=== PATIENT | male | born 2000 | race Caucasian/White ===

== ENCOUNTER 2024-08-20 20:57 | Emergency (ER) | payer BC ==
[2024-08-20 21:15] LABS: BASOPHILS ABSOLUTE AUTO 0.05 K/uL (0.02-0.10); BASOPHILS PERCENT AUTO 0.6 % (0.0-0.5); EOSINOPHILS ABSOLUTE AUTO 0.14 K/uL (0.04-0.40); EOSINOPHILS PERCENT AUTO 1.6 % (1.0-5.0); HEMATOCRIT 44.8 % (40.0-54.0); HEMOGLOBIN 15.7 g/dL (13.0-18.0); LYMPHOCYTES ABSOLUTE AUTO 1.86 K/uL (1.50-4.00); LYMPHOCYTES PERCENT AUTO 21.7 % (20.0-40.0); MEAN CORPUSCULAR HEMOGLOBIN 31.9 pg (27.0-32.0); MEAN CORPUSCULAR VOLUME 91 fL (76-96); MEAN PLATELET VOLUME 9.4 fL (6.0-10.0); MONOCYTES ABSOLUTE AUTO 1.13 K/uL (0.20-0.80); MONOCYTES PERCENT AUTO 13.2 % (3.0-10.0); NEUTROPHILS ABSOLUTE AUTO 5.39 K/uL (2.00-7.50); NEUTROPHILS PERCENT AUTO 62.9 % (45.0-70.0); PLATELET COUNT,PLT 267 K/uL (150-400); RED BLOOD CELL COUNT 4.92 M/uL (4.50-6.50); RED CELL DISTRIBUTION WIDTH 12.4 % (11.0-16.0); WHITE BLOOD CELL COUNT,WBC 8.6 K/uL (4.0-11.0)
[2024-08-20 21:26] LABS: PTT,PARTIAL THROMBOPLSTIN TIME 23.1 SECONDS (24.4-33.2)
[2024-08-20 21:27] LABS: PROTHROMBIN TIME 10.5 sec (9.0-11.5)
[2024-08-20 21:31] LABS: A/G RATIO 1.1 (0.8-2.0); ALANINE AMINOTRANSFERASE,ALT 44 U/L (12-78); ALBUMIN 4.2 g/dL (3.4-5.0); ALKALINE PHOSPHATASE 59 U/L (46-116); ANION GAP 21.3 mmol/L (5.0-15.0); ASPARTATE AMNIOTRANSFERASE,AST 31 U/L (15-37); BILIRUBIN TOTAL 0.4 mg/dL (0.0-1.0); BLOOD UREA NITROGEN,BUN 10 mg/dL (8-26); BUN/CREATININE RATIO 10.5 (6-25); CALCIUM 9.1 mg/dL (8.5-10.1); CARBON DIOXIDE,CO2 23.1 mmol/L (21.0-32.0); CHLORIDE,CL 103 mmol/L (98-107); CREATININE 0.95 mg/dL (0.70-1.30); ESTIMATED GFR 116 mL/min (>60); GLUCOSE RANDOM 112 mg/dL (74-100); LIPASE 36 U/L (16-77); POTASSIUM,K 3.4 mmol/L (3.5-5.1); PROTEIN TOTAL,TP 7.9 g/dL (6.4-8.2); SODIUM,NA 144 mmol/L (136-145); TROPONIN I HIGH SENSITIVITY 5.3 pg/ml (<=60.4)
[2024-08-20] MEDS: Sodium Chloride 0.9% 50 ML SDV FLUSH ONE (21:51)
[2024-08-20] MEDS: Iopamidol 612 MG/ML 100 ML Bottle IV SCH (21:51)
[2024-08-20] MEDS: Lactated Ringers 1,000 ML IV ONE (21:57)
[2024-08-20] MEDS: fentaNYL 100 MCG/2 ML SDV IVPUSH ONE (22:00)
[2024-08-20 22:58] LABS: APPEARANCE,URINE CLEAR (CLEAR); COLOR,URINE YELLOW
[2024-08-20 22:59] LABS: BILIRUBIN,URINE NEGATIVE (NEGATIVE); GLUCOSE,URINE NEGATIVE (NEGATIVE); KETONES,URINE NEGATIVE (NEGATIVE); LEUKOCYTE ESTERASE,URINE NEGATIVE (NEGATIVE); NITRITE,URINE NEGATIVE (NEGATIVE); OCCULT BLOOD,URINE TRACE-INTACT (NEGATIVE); PH,URINE 5.5 (5.0-8.0); PROTEIN,URINE NEGATIVE (NEGATIVE); UROBILINOGEN,URINE 0.2 E.U./dL (0.2-1.0)
[2024-08-20 23:00] LABS: AMPHETAMINES SCREEN, URINE POSITIVE (NEGATIVE); BARBITURATE SCREEN,URINE NEGATIVE (NEGATIVE); BENZODIAZEPINES SCREEN,URINE NEGATIVE (NEGATIVE); METHADONE SCREEN, URINE NEGATIVE (NEGATIVE); METHAMPHETAMINES SCREEN, URINE NEGATIVE (NEGATIVE); OXYCODONE SCREEN,URINE NEGATIVE (NEGATIVE); RBC,URINE 0-5 /HPF; THC SCREEN,URINE 50 NG/ML POSITIVE (NEGATIVE); WBC,URINE NOT SEEN /HPF
== END 2024-08-20 23:12 | disposition home or self-care (01) ==
LOC: LB.ED 20:57
DX: S80.212A Abrasion, left knee, initial encounter (principal); S90.812A Abrasion, left foot, initial encounter; S60.512A Abrasion of left hand, initial encounter; V69.9XXA Occupant (driver) (passenger) of heavy transport vehicle injured in unspecified traffic accident, initial encounter
CPT/HCPCS: 36415; 70450; 71260; 72125; 73562-LT; 73590-LT; 74177; 80053; 80307; 81001; 83605; 83690; 84484; 85025; 85610; 85730; 93005; 96361; 96374; 99284; 99285-25; J3010; J3490; J7120; Q9967